=== PATIENT | female | born 1980 | race Two or more races ===

== ENCOUNTER 2023-12-19 09:49 | Emergency (ER) | payer MEDICAID, OTHER ==
[~2023-12-19] VITALS: Ht 160 cm; Wt 73.3 kg
[2023-12-19 10:51] VITALS: BP 113/63; PULSE 90; RESP 16; TEMP 98.6; O2SAT 98
[2023-12-19] MEDS: HYDROcodone-ACET 7.5/325MG TAB PO ONE (11:30)
[2023-12-19] MEDS ORDERED: IBUP-1454 PO (12:39)
== END 2023-12-19 12:39 | disposition home or self-care (01) ==
LOC: ER 09:49
DX: M54.2 Cervicalgia (principal); M79.632 Pain in left forearm; M79.631 Pain in right forearm; M79.18 Myalgia, other site; V49.9XXA Car occupant (driver) (passenger) injured in unspecified traffic accident, initial encounter; Y93.89 Activity, other specified; Y92.488 Other paved roadways as the place of occurrence of the external cause; Y99.8 Other external cause status
CPT/HCPCS: 71046; 73090